=== PATIENT | male | born 1950 | race Caucasian/White ===

== ENCOUNTER 2022-10-31 10:13 | Observation (INO) ==
[2022-10-31 12:15] LABS: ABS Lymphocytes 0.6 10^3/uL (1.0-4.8); ABS Monocytes 0.8 10^3/uL (0.0-1.1); ABS Neutrophils 6.4 10^3/uL (1.5-7.6); Eosinophil % 0.6 %; Hematocrit 42.5 % (38-53); Hemoglobin 14.6 g/dL (13.2-16.3); Lymphocyte % 7.1 %; Mean Corpuscular Hemoglobin 30.9 pg (27-33); Mean Corpuscular Hgb Conc 34.3 g/dL (31-36); Mean Corpuscular Volume 89.9 fL (80-97); Mean Platelet Volume 8.6 fL (7.5-11.2); Platelet Count 185 10^3/uL (150-450); Red Blood Count 4.73 10^6/uL (4.06-5.63); Red Cell Distribution Width 14.3 % (12-17); White Blood Count 7.8 10^3/uL (3.6-10.2)
[2022-10-31 12:30] LABS: CRP High Sensitivity 4.45 mg/L (<2.00); Calcium 10.5 mg/dL (8.6-10.3); Creatinine, Serum 1.77 mg/dL (0.67-1.17); eGFR CKD-EPI 40.6 (>60)
[2022-10-31] MEDS ORDERED: Tetan/Diph/Pertus SYR(Tdap) 0.5 ML SYR(BOOSTRIX) use SYR contains LATEX IM ONE (12:51)
[2022-10-31] MEDS ORDERED: NS 0.9% 1000 ml BAG 1,000 ML IV ONE (12:53)
[2022-10-31] MEDS ORDERED: Vancomycin 1,500 MG in NS 0.9% 250 ml 250 ML IVPB ONE (13:01)
[2022-10-31] MEDS ORDERED: cefTRIAXone 1 gm/50 mL D5W 1 GM/50 ML BAG IV ONE (13:01)
[2022-10-31 14:01] LABS: C Reactive Protein 5.18 mg/L (<8.01); Magnesium 2.1 mg/dL (1.9-2.7)
[2022-10-31 15:11] LABS: Erythrocyte Sed Rate 9 mm/Hr (0-19)
[2022-10-31] MEDS ORDERED: Lidocaine 1% VIAL 10 MG/ML VIAL 30 ML ONE (15:23)
[2022-10-31] MEDS ORDERED: Vancomycin per Pharmacy 1 EA NOTE FOLLOW UP SCH (18:00)
[2022-11-01 05:55] LABS: ABS Lymphocytes 0.6 10^3/uL (1.0-4.8); ABS Monocytes 0.9 10^3/uL (0.0-1.1); ABS Neutrophils 4.9 10^3/uL (1.5-7.6); Eosinophil % 0.7 %; Hematocrit 39.3 % (38-53); Hemoglobin 13.6 g/dL (13.2-16.3); Lymphocyte % 9.7 %; Mean Corpuscular Hemoglobin 30.9 pg (27-33); Mean Corpuscular Hgb Conc 34.6 g/dL (31-36); Mean Corpuscular Volume 89.4 fL (80-97); Mean Platelet Volume 9.2 fL (7.5-11.2); Platelet Count 157 10^3/uL (150-450); Red Blood Count 4.39 10^6/uL (4.06-5.63); Red Cell Distribution Width 14.3 % (12-17); White Blood Count 6.5 10^3/uL (3.6-10.2)
[2022-11-01 06:02] LABS: Creatinine, Serum 1.74 mg/dL (0.67-1.17); Magnesium 1.9 mg/dL (1.9-2.7); Potassium 4.5 mmol/L (3.5-5.0); eGFR CKD-EPI 41.4 (>60)
[2022-11-01] MEDS: cefTRIAXone 1 gm/50 mL D5W 1 GM/50 ML BAG IV SCH (13:50)
[2022-11-01] MEDS ORDERED: Lactated Ringers 1000 ml BAG 1,000 ML IV ONE (14:45)
[2022-11-01] MEDS: Vancomycin 1,500 MG in NS 0.9% 250 ml 250 ML IVPB SCH (14:53)
[2022-11-02 07:37] LABS: ABS Eosinophils 0.1 10^3/uL (0.0-0.5); ABS Lymphocytes 0.8 10^3/uL (1.0-4.8); ABS Monocytes 0.7 10^3/uL (0.0-1.1); ABS Neutrophils 3.7 10^3/uL (1.5-7.6); Eosinophil % 1.8 %; Hematocrit 40.7 % (38-53); Hemoglobin 14.1 g/dL (13.2-16.3); Lymphocyte % 14.4 %; Mean Corpuscular Hemoglobin 30.9 pg (27-33); Mean Corpuscular Hgb Conc 34.5 g/dL (31-36); Mean Corpuscular Volume 89.6 fL (80-97); Mean Platelet Volume 9.5 fL (7.5-11.2); Platelet Count 177 10^3/uL (150-450); Red Blood Count 4.55 10^6/uL (4.06-5.63); Red Cell Distribution Width 14.2 % (12-17); White Blood Count 5.3 10^3/uL (3.6-10.2)
[2022-11-02 07:52] LABS: Calcium 10.3 mg/dL (8.6-10.3); Creatinine, Serum 1.58 mg/dL (0.67-1.17); Magnesium 1.8 mg/dL (1.9-2.7); Potassium 4.5 mmol/L (3.5-5.0); eGFR CKD-EPI 46.5 (>60)
[2022-11-02] MEDS: cefTRIAXone 1 gm/50 mL D5W 1 GM/50 ML BAG IV SCH (14:03)
[2022-11-02 14:16] VITALS: BP 103/72
[2022-11-02] MEDS: Vancomycin 1,500 MG in NS 0.9% 250 ml 250 ML IVPB SCH (15:09)
[2022-11-03] MEDS ORDERED: Vancomycin Trough Check NOTE FOLLOW UP ONE (14:30)
== END 2022-11-02 17:45 | disposition home or self-care (01) ==
LOC: ED 10:13 → EDHOLD 10:13 → SUATTDRO 14:19 → SSU 17:33
PROVIDERS: ADMIT Hospitalist; ATTEND Family Medicine